=== PATIENT | female | born 1945 | race Caucasian/White ===

== ENCOUNTER 2017-02-13 21:18 | Inpatient (IN) | payer OTHER ==
--- NOTE | 2017-02-13 21:25 | PDOC ---
History of Present Illness - General History Source: Patient Exam Limitations: No Limitations - History of Present Illness Initial Comments: 02/13/17 21:58 The patient is a 71 year old female, with significant past medical history of MS , hypertension, hyperlipidemia, hypothyroidism, who presents today complaining of a left leg injury s/p mechanical fall in the garden this evening. The patient explains that she was trying to place a new window flower box and tripped over a bed of arredondo. She landed on her left leg and felt it twist. The pain is localized to the mid left thigh. She denies any pain in the knee, hip, calf,or ankle. She states that the pain is exacerbated with movement. There is no pain with touch. She is unable to bear weight on her left leg. She notes that her left leg is the weak leg due to MS and she was gardening all day , which may have weakened it further. Denies head trauma. Denies neck pain, back pain. Denies fever, chills, nausea, vomiting. Allergies: diazepam <Liliana Lambert - Last Filed: 02/13/17 21:58> <Sofy Sheehan - Last Filed: 02/14/17 00:15> - General Chief Complaint: Injury Stated Complaint: LT LEG PAIN Past History <Liliana Lambert - Last Filed: 02/13/17 21:58> - Past Medical History HTN: Yes Hypercholesterolemia: Yes Thyroid Disease: Yes (HYPOTHYROIDISM) - Psycho/Social/Smoking Cessation Hx Anxiety: No Suicidal Ideation: No Smoking Status: No Smoking History: Never smoked Number of Cigarettes Smoked Daily: 0 <Sofy Sheehan - Last Filed: 02/14/17 00:15> - Past Medical History Allergies/Adverse Reactions: Allergies Allergy/AdvReac Type Severity Reaction Status Date / Time meperidine HCl [From Demerol] AdvReac Verified 02/13/17 23:14 Home Medications: Ambulatory Orders Aspirin [ASA] 81 mg PO DAILY 03/08/13 Atorvastatin Calcium [Lipitor] 10 mg PO DAILY 03/08/13 Hydrochlorothiazide [Hctz] 12.5 mg PO DAILY 03/08/13 Levothyroxine [Synthroid] 100 mcg PO DAILY 03/08/13 Dicyclomine HCl 10 mg PO WEEKLY 02/13/17 Review of Systems - Review of Systems Able to Perform ROS?: Yes Comments:: 02/13/17 21:58 CONSTITUTIONAL: Absent: fever, no chills, no fatigue EYES: Absent: visual changes ENT: Absent: ear pain, no sore throat CARDIOVASCULAR: Absent: chest pain, no palpitations RESPIRATORY: Absent: cough, no SOB GI: Absent: abdominal pain, no nausea, no vomiting, no constipation, no diarrhea GENITOURINARY: Absent: dysuria, no frequency, no hematuria MUSCULOSKELETAL: Present: left mid thigh injury and pain. Absent: back pain, neck pain, shoulder pain SKIN: Absent: rash NEURO: Absent: headache <Liliana Lambert - Last Filed: 02/13/17 21:58> *Physical Exam - Vital Signs Last Vital Signs Temp Pulse Resp BP Pulse Ox 99.3 F 92 H 16 152/79 100 02/13/17 21:27 02/13/17 21:27 02/13/17 21:27 02/13/17 21:27 02/13/17 21:27 - Physical Exam Comments: 02/13/17 21:59 GENERAL: The patient is awake, alert, and fully oriented, in no acute distress. HEAD: Normal with no signs of trauma. LUNGS: Breath sounds equal, clear to auscultation bilaterally. No wheeze/ crackles. HEART: Regular rate and rhythm, normal S1 and S2 without murmur or rub. EXTREMITIES: No tenderness on pelvic rock. Minimal left anterior hip joint tenderness. Marked pain with abduction of left leg. Left thigh nonedematous. No deformity noted. Left knee nonedematous, nontender with no deformity. Lower leg likewise with no deformity. Left foot is warm and dry with good capillary refill. NEUROLOGICAL: Cranial nerves II through XII grossly intact. Normal speech, normal gait. PSYCH: Normal mood, normal affect. SKIN: Warm, Dry, normal turgor, no rashes or lesions noted. <Liliana Lambert - Last Filed: 02/13/17 21:58> ED Treatment Course - LABORATORY CBC & Chemistry Diagram: 02/13/17 23:10 02/13/17 23:10 <Sofy Sheehan - Last Filed: 02/14/17 00:15> Progress Note - Progress Note Progress Note: Documentation has been prepared under my direction and personally reviewed by me in its entirety. I attest that this documented accurately reflects all work, treatment, procedures and medical decision making performed by me. <Soyf Sheehan - Last Filed: 02/14/17 00:15> Medical Decision Making - Medical Decision Making As noted above, this 71-year-old woman with a history of MS, hypertension, hyperlipidemia, hypothyroidism presents with low left lower extremity injury. As noted, patient tripped over arredondo in her garden and twisted left leg, landing on left leg. Patient has been unable to bear weight second to pain on the left leg since the injury. Patient arrives by ambulance with marked pain on movement of the left leg especially abduction at the hip. Exam also notable for minimal tenderness at the anterior hip region but mild shortening of the left leg (no rotation); no obvious deformity/edema noted. Distal leg is warm and dry with excellent capillary refill. Patient had adverse effect (not ALLERGIC reaction ) to meperidine: Vomiting/ abdominal discomfort. She has no history of ALLERGIC reaction to diazepam Patient received Dilaudid 1 mg IM prior to diagnostic studies X-ray studies performed portably because of patient's extreme pain on movement of the leg. Left hip x-ray reveals displaced left femoral neck fracture Portable chest x-ray shows piled cardiomegaly but no infiltrate/effusion or other acute pathology 02/13/17 23:34 Patient requests Doctors Jonatan/Ramses for repair of her hip fracture. Case discussed with VENICE Early who was on-call for the group. Patient to be made NPO after midnight Patient's medical doctors are at [facility]; [place] [facility] will be contacted regarding admission Laboratory evaluation shows potassium 3.3; patient given K-Dur 40 mEq by mouth Also, because of patient's painful muscle spasms, Valium 5 mg by mouth be given now 12-lead electrocardiogram shows normal sinus rhythm at 96 beats per minute; wave forms, axis and intervals are all normal; there is no evidence of acute ST or T-wave abnormalities. 02/14/17 00:12 Case discussed with from [facility] hospitalist service. Patient will be admitted to their service pending repair of left hip fracture. <Sofy Sheehan - Last Filed: 02/14/17 00:15> *DC/Admit/Observation/Transfer - Attestations Scribe Attestion: 02/13/17 21:59 Documentation prepared by HARRISON Oliver, acting as medical billing and coding specialist for Sofy Sheehan MD. <Liliana Lambert - Last Filed: 02/13/17 21:58> - Discharge Dispostion Admit: Yes <Sofy Sheehan - Last Filed: 02/14/17 00:15> Diagnosis at time of Disposition: Fracture of left hip Qualifiers: Encounter type: initial encounter Fracture type: closed Qualified Code(s): S72.002A - Fracture of unspecified part of neck of left femur, initial encounter for closed fracture - Discharge Dispostion Condition at time of disposition: Stable
[2017-02-13] MEDS ORDERED: HYDROmorphone HCL CARPU-JECT 1 MG/1 ML DISP.SYRIN IM ONE (21:55)
[2017-02-13] MEDS ORDERED: HYDROmorphone HCL CARPU-JECT 1 MG/1 ML DISP.SYRIN ONE (21:58)
[2017-02-13 23:24] LABS: BASOPHIL 3.1 % (0-2.0); EOSINOPHIL 0.8 % (0-4.5); MCHC 33.5 g/dl (32.0-36.0); MEAN CELL VOLUME 89.3 fl (80-96); NEUTROPHILS 80.8 % (42.8-82.8); PLATELET COUNT 170 K/MM3 (134-434); RDW 12.7 % (11.6-15.6); WHITE BLOOD COUNT 7.3 K/mm3 (4.0-10.8)
[2017-02-13 23:33] LABS: INR 0.99 (0.82-1.09); PROTHROMBIN TIME (PATIENT) 11.1 SEC (10.2-13.0)
[2017-02-13 23:35] LABS: ALBUMIN 4.2 g/dl (3.5-5.0); ALK PHOS 86 U/L (32-92); ANION GAP 9 (8-16); BILIRUBIN,TOTAL 0.4 mg/dl (0.2-1.0); CALCIUM 9.1 mg/dl (8.4-10.2); CO2 28 mmol/L (22-28); CREATININE 0.7 mg/dl (0.6-1.3); GLUCOSE,RANDOM 114 mg/dl (74-106); SGOT/AST 34 U/L (10-42); SGPT/ALT 31 U/L (10-40); TOT PROT 6.8 g/dl (6.4-8.3)
[2017-02-13] MEDS ORDERED: POTASSIUM CHLORIDE TABS 20 MEQ TABLET.ER (FP) PO ONE ×2 (23:45→23:48)
[2017-02-13 23:49] LABS: TROPONIN I (DFP) 0.03 ng/ml (0.03-0.50)
[2017-02-13] MEDS ORDERED: diazePAM 5 MG TABLET PO ONE (23:57)
[2017-02-14] MEDS ORDERED: diazePAM 5 MG TABLET ONE (00:01)
[2017-02-14] MEDS: morphine CARPU-JECT 2 MG/1 ML DISP.SYRIN IVPUSH PRN ×2 (00:49→04:02)
[2017-02-14 01:32] VITALS: BMI 19.3
[2017-02-14] MEDS: ATORVASTATIN CA 10 MG TABLET (FP) PO SCH ×2 (01:39→22:14)
[2017-02-14] MEDS: LEVOTHYROXINE NA 100 MCG TABLET (FP) PO SCH (07:49)
--- NOTE | 2017-02-14 07:55 | HP ---
CHIEF COMPLAINT: left hip pain PCP: HISTORY OF PRESENT ILLNESS: The patient is a 71 year old female, with significant past medical history of MS , hypertension, hyperlipidemia, hypothyroidism, IBS, Breast CA s/p chemo/ radiation in [place] 20 years ago, who presents today complaining of a left leg injury s/p mechanical fall in the garden this evening. The patient explains that she was trying to place a new window flower box and tripped over a bed of arredondo. She landed on her left leg and felt it twist. The pain is localized to the mid left thigh. She denies any pain in the knee, hip, calf,or ankle. She states that the pain is exacerbated with movement. There is no pain with touch. She is unable to bear weight on her left leg. She notes that her left leg is the weak leg due to MS and she was gardening all day, which may have weakened it further. Denies head trauma. Denies neck pain, back pain. Denies fever, chills, nausea, vomiting. Allergies: demerol ER course was notable for: (1) xray of left hip with findings of Left hip fx (2) (3) Social History: Smoking: Alcohol: Drugs: meperidine HCl [From Demerol] Adverse Reaction (Verified 02/13/17 23:14) HOME MEDICATIONS: Home Medications Medication Instructions Recorded Aspirin [ASA] 81 mg PO DAILY 03/08/13 Atorvastatin Calcium [Lipitor] 10 mg PO DAILY 03/08/13 Hydrochlorothiazide [Hctz] 12.5 mg PO DAILY 03/08/13 Levothyroxine [Synthroid] 100 mcg PO DAILY 03/08/13 Dicyclomine HCl 10 mg PO WEEKLY 02/13/17 REVIEW OF SYSTEMS CONSTITUTIONAL: Absent: fever, chills, diaphoresis, generalized weakness, malaise, loss of appetite, weight change HEENT: Absent: rhinorrhea, nasal congestion, throat pain, throat swelling, difficulty swallowing, mouth swelling, ear pain, eye pain, visual changes CARDIOVASCULAR: Absent: chest pain, syncope, palpitations, irregular heart rate, lightheadedness , peripheral edema RESPIRATORY: Absent: cough, shortness of breath, dyspnea with exertion, orthopnea, wheezing, stridor, hemoptysis GASTROINTESTINAL: Absent: abdominal pain, abdominal distension, nausea, vomiting, diarrhea, constipation, melena, hematochezia GENITOURINARY: Absent: dysuria, frequency, urgency, hesitancy, hematuria, flank pain, genital pain MUSCULOSKELETAL: Absent: myalgia, arthralgia, joint swelling, back pain, neck pain, Left hip pain + SKIN: Absent: rash, itching, pallor HEMATOLOGIC/IMMUNOLOGIC: Absent: easy bleeding, easy bruising, lymphadenopathy, frequent infections ENDOCRINE: Absent: unexplained weight gain, unexplained weight loss, heat intolerance, cold intolerance NEUROLOGIC: Absent: headache, focal weakness or paresthesias, dizziness, unsteady gait, seizure, mental status changes, bladder or bowel incontinence PSYCHIATRIC: Absent: anxiety, depression, suicidal or homicidal ideation, hallucinations. PHYSICAL EXAMINATION Vital Signs - 24 hr 02/14/17 02/14/17 00:36 06:00 Temperature 99.0 F 98.5 F Pulse Rate 100 H 93 H Respiratory 18 20 Rate Blood Pressure 169/76 173/87 O2 Sat by Pulse 99 98 Oximetry (%) GENERAL: Awake, alert, and fully oriented, in no acute distress. HEAD: Normal with no signs of trauma. EYES: Pupils equal, round and reactive to light, extraocular movements intact, sclera anicteric, conjunctiva clear. No lid lag. EARS, NOSE, THROAT: Ears normal, nares patent, oropharynx clear without exudates. Moist mucous membranes. NECK: Normal range of motion, supple without lymphadenopathy, JVD, or masses. LUNGS: Breath sounds equal, clear to auscultation bilaterally. No wheezes, and no crackles. No accessory muscle use. HEART: Regular rate and rhythm, normal S1 and S2 without murmur, rub or gallop. ABDOMEN: Soft, nontender, not distended, normoactive bowel sounds, no guarding, no rebound, no masses. No hepatomegaly or splenomegaly. MUSCULOSKELETAL: Normal range of motion at all joints. No bony deformities or tenderness. No CVA tenderness. UPPER EXTREMITIES: 2+ pulses, warm, well-perfused. No cyanosis. No clubbing. No peripheral edema. LOWER EXTREMITIES: 2+ pulses, warm, well-perfused. No calf tenderness. No peripheral edema. Unable to move left hip and leg due to pain NEUROLOGICAL: Cranial nerves II-XII intact. Normal speech. Normal gait. PSYCHIATRIC: Cooperative. Good eye contact. Appropriate mood and affect. SKIN: Warm, dry, normal turgor, no rashes or lesions noted, normal capillary refill. ASSESSMENT/PLAN: This 71 yr old female with recent fall and + left hip fx 1. Hip fx -consult to orthopedics -pain management changed to [employer] morphine -NPO for pending OR -labs -EKG -CXR -preop work up 2. HTN -continue home hypertension meds -monitor vss 3. HLD -continue statin 4. GI/DVT ppx -protonix -holding DVT ppx for pending surgery -SCD 5. Hypothyroidism -continue synthroid dose. Problem List - Problem (1) Fracture of left hip Code(s): S72.002A - FRACTURE OF UNSP PART OF NECK OF LEFT FEMUR, INIT Qualifiers: Encounter type: initial encounter Fracture type: closed Qualified Code(s): S72.002A - Fracture of unspecified part of neck of left femur, initial encounter for closed fracture (2) Multiple sclerosis Code(s): G35 - MULTIPLE SCLEROSIS (3) Hypertension Code(s): I10 - ESSENTIAL (PRIMARY) HYPERTENSION (4) Hyperlipemia Code(s): E78.5 - HYPERLIPIDEMIA, UNSPECIFIED Visit type - Emergency Visit Emergency Visit: Yes ED Registration Date: 02/14/17 Care time: The patient presented to the Emergency Department on the above date and was hospitalized for further evaluation of their emergent condition. - New Patient This patient is new to me today: Yes Date on this admission: 02/14/17 - Critical Care Critical Care patient: No
[2017-02-14] MEDS ORDERED: morphine SULFATE/PF 30 MG/30 ML *PCA* DISP.SYRIN PCA SCH (08:15)
[2017-02-14 08:29] LABS: BASOPHIL 0.5 % (0-2.0); MCH 30.3 pg (25.7-33.7); MCHC 33.4 g/dl (32.0-36.0); MEAN CELL VOLUME 90.6 fl (80-96); MEAN PLT VOLUME 10.5 fl (7.5-11.1); NEUTROPHILS 84.8 % (42.8-82.8); PLATELET COUNT 142 K/MM3 (134-434); RDW 12.6 % (11.6-15.6); WHITE BLOOD COUNT 7.4 K/mm3 (4.0-10.8)
[2017-02-14 08:34] LABS: URINE APPEARANCE Clear; URINE BILIRUBIN Negative (NEGATIVE); URINE BLOOD Negative (NEGATIVE); URINE GLUCOSE (UA) Negative (NEGATIVE); URINE KETONE 2+ (NEGATIVE); URINE LEUK ESTERASE Negative (NEGATIVE); URINE NITRITE Negative (NEGATIVE); URINE PROTEIN Negative (NEGATIVE); URINE UROBILINOGEN 0.2 E.U/dl (0.2-1.0)
[2017-02-14 09:06] LABS: URINE COLOR YELLOW
[2017-02-14 09:10] LABS: INR 0.99 (0.82-1.09); PROTHROMBIN TIME (PATIENT) 11.1 SEC (10.2-13.0)
--- NOTE | 2017-02-14 09:13 | CON.ORTH ---
Consult Reason for Consultation:: left hip fx - Past Medical History ...: No - Alcohol/Substance Use Hx Alcohol Use: Yes (socially) - Smoking History Smoking history: Never smoked Have you smoked in the past 12 months: No Aproximately how many cigarettes per day: 0 Home Medications - Allergies Allergies/Adverse Reactions: Allergies Allergy/AdvReac Type Severity Reaction Status Date / Time meperidine HCl [From Demerol] Allergy Verified 02/14/17 08:31 - Home Medications Home Medications: Ambulatory Orders Aspirin [ASA] 81 mg PO DAILY 03/08/13 Atorvastatin Calcium [Lipitor] 10 mg PO DAILY 03/08/13 Hydrochlorothiazide [Hctz] 12.5 mg PO DAILY 03/08/13 Levothyroxine [Synthroid] 100 mcg PO DAILY 03/08/13 Dicyclomine HCl 10 mg PO WEEKLY 02/13/17 Physical Exam for Ortho Vital Signs: Vital Signs Temperature 98.5 F 02/14/17 06:00 Pulse Rate 90 02/14/17 08:42 Respiratory Rate 18 02/14/17 08:42 Blood Pressure 170/79 02/14/17 08:42 O2 Sat by Pulse Oximetry (%) 98 02/14/17 06:00 Labs: CBC, BMP 02/14/17 06:00 INR, PTT INR 0.99 (0.82-1.09) 02/13/17 23:10 - Lower Extremity Hip: Yes: Left, Decreased ROM, Leg Externally Rotated, Leg Shortened, Pain, Swelling, Other (nvi) Imaging - Results X-ray: Report Reviewed, Image Reviewed Assessment/Plan 71 year old female, with significant past medical history of MS, hypertension, hyperlipidemia, hypothyroidism, who presents today complaining of a left leg injury s/p mechanical fall in the garden this evening. The patient explains that she was trying to place a new window flower box and tripped over a bed of arredondo. She landed on her left leg and felt it twist. The pain is localized to the mid left thigh. She denies any pain in the knee, hip, calf,or ankle. She states that the pain is exacerbated with movement. There is no pain with touch. She is unable to bear weight on her left leg. She notes that her left leg is the weak leg due to MS and she was gardening all day, which may have weakened it further. a/p- Left displaced femoral neck fx Risks and benefits were d/w pt and in detail will require left hip hemiarthroplasty surgical clearance OR today for left hip bro NPO d/w Dr. Pearce
[2017-02-14 09:19] LABS: ACTIVATED PTT 27.5 SECONDS (24.0-38.9)
[2017-02-14] MEDS: HYDROCHLOROTHIAZIDE 12.5 MG CAPSULE (FP) PO SCH (09:28)
[2017-02-14 09:35] LABS: ALBUMIN 4.1 g/dl (3.5-5.0); ALK PHOS 82 U/L (32-92); ANION GAP 8 (8-16); BILIRUBIN,TOTAL 0.7 mg/dl (0.2-1.0); CALCIUM 8.7 mg/dl (8.4-10.2); CO2 27 mmol/L (22-28); CREATININE 0.7 mg/dl (0.6-1.3); GLUCOSE,RANDOM 105 mg/dl (74-106); SGOT/AST 29 U/L (10-42); SGPT/ALT 27 U/L (10-40); TOT PROT 6.5 g/dl (6.4-8.3)
[2017-02-14] MEDS ORDERED: ENOXAPARIN NA (PORCINE) 40 MG/0.4 ML DISP.SYRIN SQ SCH (10:00)
[2017-02-14] MEDS: DEXTROSE 5%-0.45% SALINE 1,000 ML IV SCH (10:07)
[2017-02-14] MEDS ORDERED: ONDANSETRON 4 MG/2 ML VIAL ONE (15:04)
[2017-02-14] MEDS ORDERED: DEXAMETHASONE SOD PHOSPHATE 4 MG/1 ML VIAL ONE (15:04)
[2017-02-14] MEDS ORDERED: PROPOFOL 20 ML ONE (15:04)
[2017-02-14] MEDS ORDERED: ceFAZolin SODIUM 1 GM VIAL ONE ×2 (15:04→15:14)
[2017-02-14] MEDS ORDERED: MIDAZOLAM HCL 2 MG/2 ML SINGLE DOSE VIAL ONE ×2 (15:05)
[2017-02-14] MEDS ORDERED: LIDOCAINE HCL/PF 2% SDV 5ML VIAL ONE (15:12)
[2017-02-14] MEDS ORDERED: VANCOMYCIN 1,000 MG VIAL (RESTRICTED TO ID ONLY) ONE (15:14)
[2017-02-14] MEDS ORDERED: TRANEXAMIC ACID 1000 MG/10 ML VIAL ONE ×2 (15:14→16:49)
[2017-02-14] MEDS ORDERED: ePHEDrine SULFATE 50 MG/1 ML AMPULE ONE (16:45)
[2017-02-14] MEDS ORDERED: LACTATED RINGERS SOLUTION 1,000 ML IV SCH (17:45)
--- NOTE | 2017-02-14 17:47 | OP ---
Operative Note - Note: Operative Date: 02/14/17 (dandy) Pre-Operative Diagnosis: left femoral neck fx Operation: left hip bro Post-Operative Diagnosis: Same as Pre-op Surgeon: Aaron Pearce Slitter Cut Off Operator: Andre Richey Anesthesia: Spinal Specimens Removed: femoral head Estimated Blood Loss (mls): 150 Operative Report Dictated: Yes
[2017-02-14] MEDS ORDERED: oxyCODONE HCL 5 MG TABLET PO PRN (17:57)
[2017-02-14] MEDS ORDERED: ACETAMINOPHEN 325 MG TABLET (FP) PO SCH (18:00)
--- NOTE | 2017-02-14 21:03 | OP ---
DATE OF OPERATION: 02/14/2017 PREOPERATIVE DIAGNOSIS: Left displaced femoral neck fracture. POSTOPERATIVE DIAGNOSIS: Left displaced femoral neck fracture. PROCEDURE: Left hip hemiarthroplasty. SURGEON: Brittney Hester MD SURGICAL INSTRUMENTS INSPECTOR: VENICE Early ANESTHESIA: Ashkan Suárez MD, spinal anesthesia with minimal sedation. DRAINS: None. COMPLICATIONS: None. SPECIMEN: Left femoral head. BLOOD LOSS: Minimal. BLOOD GIVEN: None. FLUID REPLACEMENT: 700 mL. This patient is a 71-year-old female with a preoperative diagnosis of multiple sclerosis, status post fall, with a displaced left femoral neck fracture. After understanding the potential risks, complications, alternatives, benefits to surgery versus nonsurgical treatment, she and her elected to undergo this procedure. The patient was brought to the operating room, peripheral IV placed, IV sedation given, 1 g of IV Ancef was given. Spinal anesthesia was induced. She was placed into the right lateral decubitus position with ample padding throughout. The left lower extremity was prepped and draped in sterile fashion. A curvilinear incision was marked out in the standard posterolateral approach over the left hip. The incision was made with a number 10 scalpel blade. Subcutaneous hemostasis achieved with Bovie cautery. Dissection was done down to the lateral fascia, which was incised longitudinally. The leg was put into a position of slight flexion, internal rotation, with pressure on the posterior structures, which were taken off of the posterior aspect of the femur with the cautery. This exposed the fracture site. Hematoma was removed. Capsule was excised off the femoral head. Bony fragments were removed. The broach was placed onto the proximal femur and marked off with the cautery, and the oscillating saw was used to do the provisional femoral neck cut. Bone was removed. The corkscrew anchor was then put into the femoral head, the head was removed. We measured a 46 and a 47 mm. Both were trialed. The 47 seemed much more stable. Next, the femoral canal was prepared in the standard fashion, 1st with a box osteotome, the canal finder, and sequential broaches, until we got up to a size 5. This was extremely stable in rotation, went down to the right level. The calcar reamer was used to take off a very small amount of medial calcar bone. The standard neck with a 47 trial head was placed on the number 5 broach. Reduction was performed, and the femoral hemiarthroplasty prosthesis was quite stable in the acetabulum It was seated well, it lined up well. There was no significant telescoping, and the patient was extremely stable in severe flexion and internal rotation. A bone hook was used to remove the trial prosthesis, a broach handle used to remove the broach. The canal was prepared, washed out and dried with the pulse lavage. There was no debris anywhere including the acetabulum. Next, a Colby Accolade number 5 Press-Fit femoral stem was placed in in the standard fashion, and then a bipolar hemiarthroplasty head with a standard neck and 47-mm head was placed on with a Bermudez taper and mallet. Reduction was performed. Again, the leg lengths were good, the prosthesis was stable in the acetabulum, was quite difficult to dislocate. The area was copiously irrigated and washed out. The capsule was repaired in the area of the T capsulotomy with number 1 Tycron suture. This tightened up the posterior aspect of the hip to prevent instability. Next, the fascial layer was closed with number 1 Tycron, 0 Vicryl used to close the deep adipose layer, number 2 Vicryl used to close the deep dermal layer, and final skin reapproximation was done with a running subcuticular 3-0 V-Loc suture. The area was then washed and dried and covered with SwiftSet and a 12-inch Aquacel dressing. There was very minimal blood loss throughout the case, perhaps 75 mL. She was stable throughout the case. Total surgical time was about 40 minutes. There were no complications. She was brought up to the regular recovery room in stable condition. BRITTNEY HESTER M.D. [id number]
[2017-02-14] MEDS: CEFAZOLIN 1 GM/D5W 50 ML IVPB SCH (22:14)
[2017-02-14] MEDS: ACETAMINOPHEN 325 MG TABLET (FP) PO PRN (23:14)
[2017-02-15] MEDS: CEFAZOLIN 1 GM/D5W 50 ML IVPB SCH (03:16)
[2017-02-15] MEDS: ACETAMINOPHEN 325 MG TABLET (FP) PO PRN ×4 (06:15→21:50)
[2017-02-15] MEDS: LEVOTHYROXINE NA 100 MCG TABLET (FP) PO SCH (06:15)
--- NOTE | 2017-02-15 08:17 | PN ---
Progress Note (short form) - Note Progress Note: Ortho Pt seen and examined s/p left hip bro pod #1 Selected Entries 02/15/17 05:41 Temperature 98.5 F Pulse Rate 71 Respiratory 18 Rate Blood Pressure 125/62 dressing c/d/i, calf soft, nt nvi cbc pending a/p PT hip precautions dvt ppx pain control d/c planning
[2017-02-15 08:49] LABS: MCH 30.3 pg (25.7-33.7); MCHC 33.8 g/dl (32.0-36.0); MEAN CELL VOLUME 89.7 fl (80-96); MEAN PLT VOLUME 10.1 fl (7.5-11.1); PLATELET COUNT 139 K/MM3 (134-434); RDW 12.7 % (11.6-15.6); WHITE BLOOD COUNT 7.9 K/mm3 (4.0-10.8)
[2017-02-15 09:03] LABS: ANION GAP 7 (8-16); CALCIUM 8.7 mg/dl (8.4-10.2); CO2 30 mmol/L (22-28); CREATININE 0.7 mg/dl (0.6-1.3); GLUCOSE,RANDOM 111 mg/dl (74-106)
[2017-02-15] MEDS: ASPIRIN 325 MG TABLET PO SCH (10:32)
[2017-02-15] MEDS: DEXTROSE 5%-0.45% SALINE 1,000 ML IV SCH (10:32)
[2017-02-15] MEDS: oxyCODONE HCL 5 MG TABLET PO PRN ×2 (10:32→21:48)
[2017-02-15] MEDS: HYDROCHLOROTHIAZIDE 12.5 MG CAPSULE (FP) PO SCH (10:32)
[2017-02-15] MEDS: DOCUSATE SODIUM 100 MG CAPSULE (FP) PO SCH ×2 (10:32→12:13)
--- NOTE | 2017-02-15 11:23 | PN ---
Progress Note, Physician Chief Complaint: s/p left hip hemiarthroplasty under spinal anesthesia History of Present Illness: post op day one - Current Medication List Current Medications: Active Medications Acetaminophen (Tylenol -) 650 mg PO Q4H PRN Last Admin: 02/15/17 06:15 Dose: 650 mg Aspirin (Asa -) 325 mg PO DAILY@0800 [facility] Last Admin: 02/15/17 10:32 Dose: 325 mg Atorvastatin Calcium (Lipitor -) 10 mg PO HS [facility] Last Admin: 02/14/17 22:14 Dose: 10 mg Docusate Sodium (Colace -) 100 mg PO DAILY [facility] Last Admin: 02/15/17 10:32 Dose: 100 mg Fentanyl (Sublimaze Injection -) 25 mcg IVPUSH [id number] PRN PRN Reason: PAIN Stop: 02/17/17 17:28 Hydrochlorothiazide (Hctz -) 12.5 mg PO DAILY [facility] Last Admin: 02/15/17 10:32 Dose: 12.5 mg Dextrose/Sodium Chloride (D5-1/2ns -) 1,000 mls @ 100 mls/hr IV ASDIR [facility] Last Admin: 02/15/17 10:32 Dose: Not Given Levothyroxine Sodium (Synthroid -) 100 mcg PO DAILY@0700 [facility] Last Admin: 02/15/17 06:15 Dose: 100 mcg Oxycodone HCl (Roxicodone -) 5 mg PO Q4H PRN PRN Reason: PAIN Last Admin: 02/15/17 10:32 Dose: 5 mg Oxycodone HCl (Roxicodone -) 10 mg PO Q4H PRN PRN Reason: PAIN - Objective Vital Signs: Vital Signs Temperature 98.5 F 02/15/17 05:41 Pulse Rate 71 02/15/17 05:41 Respiratory Rate 18 02/15/17 08:56 Blood Pressure 125/62 02/15/17 05:41 O2 Sat by Pulse Oximetry (%) 100 02/15/17 08:56 Constitutional: Yes: Well Nourished Cardiovascular: Yes: WNL Respiratory: Yes: WNL Gastrointestinal: Yes: WNL Labs: CBC, BMP 02/15/17 08:00 02/15/17 08:00 INR, PTT INR 0.99 (0.82-1.09) 02/14/17 06:00 Assessment/Plan Patient doing well, pain from muscle spasm more than from hip, takne tylenol which helped partially, had just received oxycodone, no nausea or vomiting, motor and sensory function back to baseline,no exacerbation of MS symptoms, advised to report any exacerbation to nursing should it arise. dept of anesthesia will sign off care at this time.
--- NOTE | 2017-02-15 13:33 | PN ---
Physical Exam: SUBJECTIVE: Patient seen and examined, patient reports feeling well reports pain to the left hip upon movement denies any paresthesia into the left lower extremity OBJECTIVE: patient is a 71 year old female, with significant past medical history of MS, hypertension, hyperlipidemia, hypothyroidism, IBS, Breast CA s/p chemo/radiation in [place] 20 years ago. patient was admitted from the emergency department for left femoral neck fracture Vital Signs Period Temp Pulse Resp BP Sys/Cintron Pulse Ox Last 24 Hr 98.1 F-99.5 F 70-93 11-18 90-162/52-82 97-100 GENERAL: The patient is awake, alert, and fully oriented, in no acute distress. HEAD: Normal with no signs of trauma. EYES: PERRL, extraocular movements intact, sclera anicteric, conjunctiva clear. No ptosis. ENT: Ears normal, nares patent, oropharynx clear without exudates, moist mucous membranes. NECK: Trachea midline, full range of motion, supple. LUNGS: Breath sounds equal, clear to auscultation bilaterally, no wheezes, no crackles, no accessory muscle use. HEART: Regular rate and rhythm, S1, S2 without murmur, rub or gallop. ABDOMEN: Soft, nontender, nondistended, normoactive bowel sounds, no guarding, no rebound, no hepatosplenomegaly, no masses. EXTREMITIES: 2+ pulses, warm, well-perfused, no edema. LEFT LOWER EXTREMITY: Wedge pillow in place, aguacell dressing in placE, CLEAN DRY AND INTACT NO ERYTHEMA NOTED LESS THAN 3 SECOND CAPILLARY REFILL +4 PEDAL PULSE. NEUROLOGICAL: Cranial nerves II through XII grossly intact. Normal speech, gait not observed. PSYCH: Normal mood, normal affect. SKIN: Warm, dry, normal turgor, no rashes or lesions noted Laboratory Results - last 24 hr 02/15/17 02/15/17 08:00 08:00 WBC 7.9 RBC 4.45 Hgb 13.5 Hct 39.9 MCV 89.7 MCHC 33.8 RDW 12.7 Plt Count 139 MPV 10.1 Sodium 136 Potassium 4.1 Chloride 99 Carbon Dioxide 30 H Anion Gap 7 L BUN 10 D Creatinine 0.7 Random Glucose 111 H Calcium 8.7 Active Medications Generic Name Dose Route Start Last Admin Trade Name Freq PRN Reason Stop Dose Admin Acetaminophen 650 mg 02/14/17 18:01 02/15/17 12:13 Tylenol - PO 650 mg Q4H PRN Administration Aspirin 325 mg 02/15/17 08:00 02/15/17 10:32 Asa - PO 325 mg DAILY@0800 DUGLAS Administration Atorvastatin Calcium 10 mg 02/14/17 00:07 02/14/17 22:14 Lipitor - PO 10 mg HS DUGLAS Administration Docusate Sodium 100 mg 02/14/17 18:00 02/15/17 12:13 Colace - PO 100 mg DAILY DUGLAS Administration Fentanyl 25 mcg 02/14/17 17:27 Sublimaze Injection - IVPUSH 02/17/17 17:28 [id number] PRN PAIN Hydrochlorothiazide 12.5 mg 02/14/17 10:00 02/15/17 10:32 Hctz - PO 12.5 mg DAILY DUGLAS Administration Dextrose/Sodium Chloride 1,000 mls @ 100 mls/hr 02/14/17 09:15 02/15/17 10:32 D5-1/2ns - IV Not Given ASDIR DUGLAS Levothyroxine Sodium 100 mcg 02/14/17 07:00 02/15/17 06:15 Synthroid - PO 100 mcg DAILY@0700 DUGLAS Administration Oxycodone HCl 5 mg 02/14/17 17:57 02/15/17 10:32 Roxicodone - PO 5 mg Q4H PRN Administration PAIN Oxycodone HCl 10 mg 02/14/17 17:57 Roxicodone - PO Q4H PRN PAIN IMAGING: LEFT HIP X-RAY- left femoral neck fracture Chest x-ray- no acute pathology ASSESSMENT/PLAN: 1. s/p left femoral neck fracture left hemiarthroplasty POD #1 (Ramses) - morphine DRAWER WAXER discontinued when necessary Roxicodone and Tylenol patient reports adequate pain relief from medications - Physical therapy as per orthopedists - Incentive spirometer - Dr. Pearce consulted and following 2) card hypertension Continue hydrochlorothiazide, blood pressure well-controlled HLD -continue statin, LFTs WNL 3) neuro mS - No acute exacerbation at this time strict monitoring 4)Endo hypothryroidism - continue s Synthroid home dose f/E/N - Low-sodium diet - Complete electrolytes when necessary ppx -protonix -asa as per ortho -SCD dispo: requires inpatient care, lengthy discussion with patient and requesting short-term rehabilitation placement Visit type - Emergency Visit Emergency Visit: Yes ED Registration Date: 02/13/17 Care time: The patient presented to the Emergency Department on the above date and was hospitalized for further evaluation of their emergent condition. - New Patient This patient is new to me today: Yes Date on this admission: 02/15/17 - Critical Care Critical Care patient: No - Discharge Referral Referred to [facility] Med P.C.: No
[2017-02-15 15:22] LABS: ACTIVATED PTT 24.4 SECONDS (24.0-38.9)
[2017-02-15 15:26] LABS: INR 0.98 (0.82-1.09)
--- NOTE | 2017-02-15 17:30 | EKG ---
Test Reason : Blood Pressure : / mmHG Vent. Rate : 095 BPM Atrial Rate : 095 BPM P-R Int : 164 ms QRS Dur : 072 ms QT Int : 338 ms P-R-T Axes : 054 003 085 degrees QTc Int : 424 ms POOR DATA QUALITY, INTERPRETATION MAY BE ADVERSELY AFFECTED NORMAL SINUS RHYTHM POSSIBLE LEFT ATRIAL ENLARGEMENT CANNOT RULE OUT ANTERIOR INFARCT , AGE UNDETERMINED NO PREVIOUS ECGS AVAILABLE Confirmed by MD FRIDA, HAEZL ([id number]) on 02/15/2017 5:30:02 PM Referred By: MD STILES Confirmed By:HAZEL GALICIA MD
[2017-02-15] MEDS: ATORVASTATIN CA 10 MG TABLET (FP) PO SCH (21:50)
[2017-02-16] MEDS: ACETAMINOPHEN 325 MG TABLET (FP) PO PRN ×3 (06:28→20:40)
[2017-02-16] MEDS: LEVOTHYROXINE NA 100 MCG TABLET (FP) PO SCH (06:28)
[2017-02-16] MEDS: oxyCODONE HCL 5 MG TABLET PO PRN (06:29)
[2017-02-16] MEDS: ASPIRIN 325 MG TABLET PO SCH (08:17)
--- NOTE | 2017-02-16 08:18 | PN ---
Progress Note (short form) - Note Progress Note: Pt seen and examined. She is doing very well s/p left hip hemiarthroplasty. Min c/o pain, starr reg diet, has ambulated with P.T. AVSS H/H stable LLE NVI, good ROM throughout. No swelling, no signs of infection Overall doing very well on POD #2 s/p left hip bro. Rec Con't P.T., WBAT SNF placement Con't anticoagulation, SCDs
[2017-02-16] MEDS: DEXTROSE 5%-0.45% SALINE 1,000 ML IV SCH (10:08)
[2017-02-16] MEDS: HYDROCHLOROTHIAZIDE 12.5 MG CAPSULE (FP) PO SCH ×2 (10:21→11:38)
[2017-02-16] MEDS: DOCUSATE SODIUM 100 MG CAPSULE (FP) PO SCH (10:21)
--- NOTE | 2017-02-16 13:22 | PN ---
Physical Exam: SUBJECTIVE: Patient seen and examined, reports feeling well, denies any chest pain or shortness of breath, reports pain upon movement to the left lower extremity. OBJECTIVE: patient is a 71 year old female, with significant past medical history of MS, hypertension, hyperlipidemia, hypothyroidism, IBS, Breast CA s/p chemo/radiation in [place] 20 years ago. patient was admitted from the emergency department for left femoral neck fracture, s/p mechanical fall. Vital Signs Period Temp Pulse Resp BP Sys/Cintron Pulse Ox Last 24 Hr 98.5 F-98.8 F 71-74 18-19 109-133/53-61 96-100 GENERAL: The patient is awake, alert, and fully oriented, in no acute distress. HEAD: Normal with no signs of trauma. EYES: PERRL, extraocular movements intact, sclera anicteric, conjunctiva clear. No ptosis. ENT: Ears normal, nares patent, oropharynx clear without exudates, moist mucous membranes. NECK: Trachea midline, full range of motion, supple. LUNGS: Breath sounds equal, clear to auscultation bilaterally, no wheezes, no crackles, no accessory muscle use. HEART: Regular rate and rhythm, S1, S2 without murmur, rub or gallop. ABDOMEN: Soft, nontender, nondistended, normoactive bowel sounds, no guarding, no rebound, no hepatosplenomegaly, no masses. EXTREMITIES: 2+ pulses, warm, well-perfused, no edema. LEFT LOWER EXTREMITY: aguacel dressing in place, CDI, less than 3 second capillary refill, + 3 pedal pulse, wedge pillow in place NEUROLOGICAL: Cranial nerves II through XII grossly intact. Normal speech, gait not observed. PSYCH: Normal mood, normal affect. SKIN: Warm, dry, normal turgor, no rashes or lesions noted Laboratory Results - last 24 hr 02/15/17 08:00 INR 0.98 PTT (Actin FS) 24.4 L Active Medications Generic Name Dose Route Start Last Admin Trade Name Freq PRN Reason Stop Dose Admin Acetaminophen 650 mg 02/14/17 18:01 02/16/17 12:06 Tylenol - PO 650 mg Q4H PRN Administration Aspirin 325 mg 02/15/17 08:00 02/16/17 08:17 Asa - PO 325 mg DAILY@0800 DUGLAS Administration Atorvastatin Calcium 10 mg 02/14/17 00:07 02/15/17 21:50 Lipitor - PO 10 mg HS DUGLAS Administration Docusate Sodium 100 mg 02/14/17 18:00 02/16/17 10:21 Colace - PO 100 mg DAILY DUGLAS Administration Fentanyl 25 mcg 02/14/17 17:27 Sublimaze Injection - IVPUSH 02/17/17 17:28 [id number] PRN PAIN Hydrochlorothiazide 12.5 mg 02/14/17 10:00 02/16/17 11:38 Hctz - PO Not Given DAILY DUGLAS Levothyroxine Sodium 100 mcg 02/14/17 07:00 02/16/17 06:28 Synthroid - PO 100 mcg DAILY@0700 DUGLAS Administration Oxycodone HCl 5 mg 02/14/17 17:57 02/16/17 06:29 Roxicodone - PO 5 mg Q4H PRN Administration PAIN Oxycodone HCl 10 mg 02/14/17 17:57 Roxicodone - PO Q4H PRN PAIN IMAGING: LEFT HIP X-RAY- left femoral neck fracture Chest x-ray- no acute pathology ASSESSMENT/PLAN: 1. s/p left femoral neck fracture left hemiarthroplasty POD #1 (Ramses) - when necessary Roxicodone and Tylenol patient reports adequate pain relief from medications - Physical therapy as per orthopedists - Incentive spirometer - Dr. Pearce consulted and following 2) card hypertension Continue hydrochlorothiazide, blood pressure well-controlled HLD -continue statin, LFTs WNL 3) neuro mS - No acute exacerbation at this time strict monitoring 4)Endo hypothryroidism - continue Synthroid home dose f/E/N - Low-sodium diet - Complete electrolytes when necessary ppx -protonix -asa as per ortho -SCD dispo: requires inpatient care, lengthy discussion with patient and requesting short-term rehabilitation placement, pending bed at [facility] Visit type - Emergency Visit Emergency Visit: Yes ED Registration Date: 02/13/17 Care time: The patient presented to the Emergency Department on the above date and was hospitalized for further evaluation of their emergent condition. - New Patient This patient is new to me today: No - Critical Care Critical Care patient: No
--- NOTE | 2017-02-16 15:01 | PATH ---
Surgical Pathology Report Patient Name: ABY VELÁSQUEZ Med. Rec. #: [id number] /Age/Gender: 1945 (Age: 71) / F Account: [id number] Location: [facility] MED-SURG Taken: 02/12/2017 Received: 02/15/2017 Reported: 02/16/2017 Physicians: Ed Hastings M.D. Specimen(s) Received LEFT FEMORAL HEAD Clinical History Left hip fracture Final Diagnosis BONE, LEFT FEMORAL HEAD, REPLACEMENT: BONE WITH INTERSTITIAL HEMORRHAGE CONSISTENT WITH FRACTURE. Electronically Signed Jason Barrett M.D. Gross Description Received in formalin labeled "left femoral head," is a 4.2 x 4.2 x 3.0 cm portion of a femoral head with no femoral neck attached. The margin of resection is red-brown, jagged and hemorrhagic. There are no areas of eburnation present. The articular surface is ellis-brown and focally granular. The underlying trabecular bone is yellow, hard and focally hemorrhagic. Separately received within the same container is a 7.0 x 5.0 x 2.3 cm aggregate of hemorrhagic bone fragments. Musical Instruments Assembler sections are submitted in one cassette, following decalcification. /02/15/201702/15/2017
[2017-02-16] MEDS: ATORVASTATIN CA 10 MG TABLET (FP) PO SCH (21:38)
[2017-02-16] MEDS ORDERED: SENNOSIDES 8.6MG TABLET (FP) PO SCH (22:00)
[2017-02-17] MEDS: ACETAMINOPHEN 325 MG TABLET (FP) PO PRN ×2 (02:50→09:31)
[2017-02-17 05:23] VITALS: BP 120/50; PULSE 64; TEMP 98.4
[2017-02-17] MEDS: LEVOTHYROXINE NA 100 MCG TABLET (FP) PO SCH (07:18)
--- NOTE | 2017-02-17 07:36 | PN ---
Progress Note (short form) - Note Progress Note: Ortho Pt seen and examined s/p left hip bro pod #3 Selected Entries 02/17/17 05:22 Temperature 98.4 F Pulse Rate 64 Respiratory 18 Rate Blood Pressure 120/50 Laboratory Tests 02/15/17 08:00 WBC 7.9 Hgb 13.5 Hct 39.9 Plt Count 139 dressing c/d/i, calf soft, nt nvi a/p PT hip precautions dvt ppx pain control d/c to snf today
[2017-02-17] MEDS: ASPIRIN 325 MG TABLET PO SCH (08:49)
[2017-02-17] MEDS: DOCUSATE SODIUM 100 MG CAPSULE (FP) PO SCH (09:31)
[2017-02-17] MEDS: HYDROCHLOROTHIAZIDE 12.5 MG CAPSULE (FP) PO SCH (09:31)
--- NOTE | 2017-02-17 11:16 | DS ---
Physical Exam: SUBJECTIVE: Patient seen and examined OBJECTIVE: Vital Signs Period Temp Pulse Resp BP Sys/Cintron Pulse Ox Last 24 Hr 98.3 F-99.5 F 64-84 16-18 106-124/50-62 96-99 PHYSICAL EXAM GENERAL: The patient is awake, alert, and fully oriented, in no acute distress. HEAD: Normal with no signs of trauma. EYES: PERRL, extraocular movements intact, sclera anicteric, conjunctiva clear. ENT: Ears normal, nares patent, oropharynx clear without exudates, moist mucous membranes. NECK: Trachea midline, full range of motion, supple. LUNGS: Breath sounds equal, clear to auscultation bilaterally, no wheezes, no crackles, no accessory muscle use. HEART: Regular rate and rhythm, S1, S2 without murmur, rub or gallop. ABDOMEN: Soft, nontender, nondistended, normoactive bowel sounds, no guarding, no rebound, no hepatosplenomegaly, no masses. EXTREMITIES: 2+ pulses, warm, well-perfused, no edema. NEUROLOGICAL: Cranial nerves II through XII grossly intact. Normal speech, gait not observed. PSYCH: Normal mood, normal affect. SKIN: Warm, dry, normal turgor, no rashes or lesions noted. LABS HOSPITAL COURSE: Date of Admission:02/13/17 Date of Discharge: 02/17/17 Minutes to complete discharge: 45 Discharge Summary Reason For Visit: HIP FX Current Active Problems Fracture of left hip (Acute) Hyperlipemia (Acute) Hypertension (Acute) Multiple sclerosis (Acute) Condition: Good - Instructions Diet, Activity, Other Instructions: Post-op Instructions Call the office for a follow-up appointment in 1 week - [phone] Aspirin 325mg daily for 6 weeks. Pain medication was sent into your pharmacy. Apply Graduated Compression Stockings (TEDs) to both lower extremities- remove daily for hygiene ONLY Apply Sequential Compression Device (SCDs) to both Lower extremities remove for PT and hygiene ONLY Apply cold packs to affected area for 15 minutes every 2 hours. Physical Therapist will come to your home for the first 5 days. You will be set up with outpatient PT at your first post-operative visit. Patient may ambulate as tolerated-encourage self care (at least every 2-3 hours while awake) with walker or cane Maintain Aquacel (waterproof) dressing to operative wound (will be removed by surgeon at first office visit) Shower with Aquacel dressing in place-if Aquacel integrity compromised, remove and apply dry sterile dressing and notify Orthopedist. DO NOT SHOWER unless Orthopedists approves without Aquacel dressing CONTACT THE OFFICE FOR ANY CHANGE IN YOUR CONDITION (for example-fever greater than 102 degrees,excessive bleeding from operative site, purulent drainage, severe swelling or pain) GO TO THE EMERGENCY ROOM IF THERE IS A MEDICAL EMERGENCY Hip Precautions: * Keep a rolled towel under affected heel while in bed or chair (to keep knee in extension) * Dependent upon approach: * Posterior - do not cross legs; do not sit on low chairs or toilets. * If you have any questions, please do not hesitate to call the office - [phone]. Referrals: Aaron Pearce MD [Staff Physician] - Disposition: VNS/HOME HEALTH CARE - Home Medications Comprehensive Discharge Medication List: Ambulatory Orders Atorvastatin Calcium [Lipitor] 10 mg PO DAILY 03/08/13 Hydrochlorothiazide [Hctz] 12.5 mg PO DAILY 03/08/13 Levothyroxine [Synthroid -] 100 mcg PO DAILY 03/08/13 Dicyclomine HCl 10 mg PO WEEKLY 02/13/17 Aspirin [ASA -] 325 mg PO DAILY@0800 tablet 02/15/17 Oxycodone HCl/Acetaminophen [Percocet 5-325 mg Tablet -] 1 - 2 tab PO Q6H #50 tab MDD 8 02/15/17 - Discharge Referral Referred to [facility] No
[2017-02-17] MEDS ORDERED: MAGNESIUM HYDROX 2400MG/30ML ORAL SUSPENSION 30 ML CUP PO PRN (13:06)
== END 2017-02-17 14:30 | DRG 470 ==
LOC: FER 21:18 → FM/S 23:57 → UNDOADMIN 02-14 00:13 → FM/S 02-15 10:48
PROVIDERS: ADMIT Internal Medicine; ATTEND Nurse Practitioner Family
PROC: 0SRS0JZ Replacement of Left Hip Joint, Femoral Surface with Synthetic Substitute, Open Approach (ICD-10-PCS; principal; 2017-02-14 16:40)
DX: S72.002A Fracture of unspecified part of neck of left femur, initial encounter for closed fracture (principal); W01.0XXA Fall on same level from slipping, tripping and stumbling without subsequent striking against object, initial encounter; Y92.89 Other specified places as the place of occurrence of the external cause; G35 Multiple sclerosis; I10 Essential (primary) hypertension; E03.9 Hypothyroidism, unspecified; E78.5 Hyperlipidemia, unspecified; Z85.3 Personal history of malignant neoplasm of breast
CPT/HCPCS: 36415; 71010-TC; 73502-TC-LT; 73552-TC-LT; 80048; 80053; 81003; 82550; 84484; 85025; 85027; 85610; 85730; 86850; 86900; 86901; 88305-TC; 88311-TC; 93005; 94010; 94760; 97116-GP; 97162-GP; 99283-25

== ENCOUNTER 2021-11-04 16:30 | Inpatient (IN) | payer OTHER ==
[2021-11-04 17:05] VITALS: BMI 16.9
[2021-11-04] MEDS ORDERED: METOCLOPRAMIDE HCL INJECTION 10 MG/2 ML VIAL IVPUSH ONE (17:10)
[2021-11-04] MEDS ORDERED: SODIUM CHLORIDE 0.9% 1000 ML INFUS.BAG IV ONE (17:10)
[2021-11-04] MEDS ORDERED: ACETAMINOPHEN 1000 MG/100 ML BAG IVPB ONE (17:10)
[2021-11-04] MEDS ORDERED: ACETAMINOPHEN INJECTION 100 ML IVPB ONE (17:44)
[2021-11-04] MEDS ORDERED: METOCLOPRAMIDE HCL INJECTION 10 MG/2 ML VIAL ONE (17:44)
[2021-11-04 17:54] LABS: ALBUMIN 3.9 g/dl (3.4-5.0); BILIRUBIN,TOTAL 1.7 mg/dl (0.2-1); CALCIUM 8.7 mg/dl (8.5-10); CREATININE 0.8 mg/dl (0.55-1.3); TOT PROT 6.8 g/dl (6.4-8.2)
[2021-11-04 18:44] LABS: BASO % 0.4 % (0-2.0); EOS % 0.2 % (0-4.5); HEMATOCRIT 40.7 % (32.4-45.2); HEMOGLOBIN 13.5 GM/dL (10.7-15.3); LYMPH % 15.5 % (8-40); MCH 29.4 pg (25.7-33.7); MCHC 33.1 g/dl (32.0-36.0); MEAN CELL VOLUME 89.1 fl (80-96); MEAN PLT VOLUME 9.3 fl (7.5-11.1); MONO % 12.2 % (3.8-10.2); NEUT % 71.7 % (42.8-82.8); PLATELET COUNT 142 10^3/uL (134-434); RBC 4.58 M/mm3 (3.60-5.2); RDW 14.7 % (11.6-15.6); WHITE BLOOD COUNT 4.7 K/mm3 (4.0-10.0)
[2021-11-04] MEDS ORDERED: MUPIROCIN 2% TOPICAL OINTMENT FOR DECOLONIZATION NS SCH (22:30)
[2021-11-05] MEDS ORDERED: METOCLOPRAMIDE HCL INJECTION 10 MG/2 ML VIAL IVPUSH ONE (00:22)
[2021-11-05] MEDS ORDERED: ACETAMINOPHEN 325 MG TABLET (FP) PO PRN (00:26)
[2021-11-05] MEDS ORDERED: METOCLOPRAMIDE HCL INJECTION 10 MG/2 ML VIAL IVPUSH PRN (00:27)
[2021-11-05] MEDS ORDERED: ACETAMINOPHEN 325 MG TABLET (FP) ONE (00:58)
[2021-11-05] MEDS: metoPROLOL SUCCINATE 25 MG TAB.SR.24H (FP) PO SCH ×2 (01:00→22:43)
[2021-11-05] MEDS ORDERED: PNEUMOC 13-VAL CONJ-DIP CRM/PF 0.5 ML DISP.SYRIN IM ONE (06:15)
[2021-11-05 06:55] LABS: BASO % 0.9 % (0-2.0); EOS % 1.3 % (0-4.5); HEMATOCRIT 39.9 % (32.4-45.2); HEMOGLOBIN 13.2 GM/dL (10.7-15.3); LYMPH % 28.9 % (8-40); MCH 29.5 pg (25.7-33.7); MCHC 33.1 g/dl (32.0-36.0); MEAN CELL VOLUME 89.1 fl (80-96); MEAN PLT VOLUME 8.9 fl (7.5-11.1); MONO % 13.1 % (3.8-10.2); NEUT % 55.8 % (42.8-82.8); PLATELET COUNT 159 10^3/uL (134-434); RBC 4.48 M/mm3 (3.60-5.2); RDW 14.6 % (11.6-15.6); WHITE BLOOD COUNT 4.6 K/mm3 (4.0-10.0)
[2021-11-05] MEDS: ACETAMINOPHEN 325 MG TABLET (FP) PO PRN ×2 (07:18→23:45)
[2021-11-05 07:23] LABS: ALBUMIN 3.3 g/dl (3.4-5.0); CALCIUM 8.5 mg/dL (8.5-10.1)
[2021-11-05 07:24] LABS: BLOOD UREA NITROGEN 14.8 mg/dL (7-18)
[2021-11-05 07:26] LABS: CREATININE 0.6 mg/dL (0.55-1.3); PHOSPHOROUS 2.6 mg/dL (2.5-4.9)
[2021-11-05 07:27] LABS: BILIRUBIN,TOTAL 0.6 mg/dL (0.2-1); TOT PROT 6.2 g/dl (6.4-8.2)
[2021-11-05] MEDS ORDERED: LABETALOL HCL 5 MG/1 ML (100MG/20 ML VIAL) IVPUSH ONE ×2 (09:30→19:11)
[2021-11-05] MEDS ORDERED: FLU VACC QS2021-22(6MOS UP)/PF 60 MCG/0.5 ML SYRINGE IM ONE (10:00)
[2021-11-05] MEDS: MUPIROCIN 2% TOPICAL OINTMENT 22 GM TUBE NS SCH ×2 (16:58→22:42)
[2021-11-05] MEDS ORDERED: CHLORHEXIDINE GLUCONATE 4% CLEANSER FOR DECOLONIZATION TP SCH (22:00)
[2021-11-05] MEDS ORDERED: ATORVASTATIN CA 10 MG TABLET (FP) PO SCH (22:00)
[2021-11-06] MEDS ORDERED: amLODIPine BESYLATE 5 MG TABLET (FP) PO ONE (06:06)
[2021-11-06] MEDS ORDERED: LEVOTHYROXINE NA 100 MCG TABLET (FP) PO SCH (07:00)
[2021-11-06] MEDS: ACETAMINOPHEN 325 MG TABLET (FP) PO PRN ×2 (07:02→12:36)
[2021-11-06 07:25] LABS: BASO % 0.7 % (0-2.0); EOS % 2.2 % (0-4.5); HEMATOCRIT 39.2 % (32.4-45.2); HEMOGLOBIN 13.7 GM/dL (10.7-15.3); LYMPH % 27.1 % (8-40); MCH 30.6 pg (25.7-33.7); MCHC 34.9 g/dl (32.0-36.0); MEAN CELL VOLUME 87.7 fl (80-96); MEAN PLT VOLUME 8.3 fl (7.5-11.1); PLATELET COUNT 161 10^3/uL (134-434); RBC 4.47 M/mm3 (3.60-5.2); RDW 14.6 % (11.6-15.6); WHITE BLOOD COUNT 4.4 K/mm3 (4.0-10.0)
[2021-11-06 07:54] LABS: CALCIUM 8.8 mg/dL (8.5-10.1)
[2021-11-06 07:55] LABS: ALBUMIN 3.7 g/dl (3.4-5.0); BLOOD UREA NITROGEN 9.9 mg/dL (7-18); MAGNESIUM 2.1 mg/dL (1.8-2.4)
[2021-11-06 07:58] LABS: CREATININE 0.6 mg/dL (0.55-1.3); PHOSPHOROUS 2.8 mg/dL (2.5-4.9)
[2021-11-06 07:59] LABS: BILIRUBIN,TOTAL 0.6 mg/dL (0.2-1); TOT PROT 6.2 g/dl (6.4-8.2)
[2021-11-06] MEDS ORDERED: HYDROCHLOROTHIAZIDE 12.5 MG CAPSULE (FP) PO SCH (10:00)
[2021-11-06] MEDS: MUPIROCIN 2% TOPICAL OINTMENT 22 GM TUBE NS SCH (10:44)
[2021-11-06 14:35] VITALS: BP 126/80; PULSE 88; TEMP 98.6
[2021-11-06] MEDS ORDERED: FLU VACC QS2021-22(6MOS UP)/PF 60 MCG/0.5 ML SYRINGE IM ONE (14:45)
== END 2021-11-06 16:20 | disposition home or self-care (01) | DRG 85 ==
LOC: FER 16:30 → JICU 23:30
PROVIDERS: ADMIT Internal Medicine; ATTEND Internal Medicine
DX: S06.6X0A Traumatic subarachnoid hemorrhage without loss of consciousness, initial encounter (principal); U07.1 COVID-19; E03.9 Hypothyroidism, unspecified; I10 Essential (primary) hypertension; E78.5 Hyperlipidemia, unspecified; G35 Multiple sclerosis; Z96.642 Presence of left artificial hip joint; W18.39XA Other fall on same level, initial encounter; Y92.098 Other place in other non-institutional residence as the place of occurrence of the external cause
CPT/HCPCS: 36415; 70450-TC; 71045-TC-FY; 72125-TC; 80053; 81003; 81015; 82550; 83735; 84100; 85025; 93005; 97116-GP; 97162-GP; 99285-25; C9803; U0003; U0005

== ENCOUNTER 2024-04-28 16:02 | Emergency (ER) | payer OTHER ==
[2024-04-28 16:39] VITALS: BP 116/100; PULSE 74; RESP 11; TEMP 98.4; BMI 23.3
== END 2024-04-28 18:11 | disposition home or self-care (01) ==
LOC: JER 16:02
DX: S22.42XA Multiple fractures of ribs, left side, initial encounter for closed fracture (principal); J90 Pleural effusion, not elsewhere classified; W19.XXXA Unspecified fall, initial encounter
CPT/HCPCS: 71250-TC; 99284-25